=== PATIENT | female | born 1995 | race Two or more races ===

== ENCOUNTER 2017-02-27 12:52 | Emergency (ER) | payer OTHER ==
--- NOTE | 2017-02-27 14:32 | ER Document Report ---
HPI - HPI Patient complains to provider of: Mouth Sores Onset: Other - Greter that n 3 weeks ago. Onset/Duration: Sudden Quality of pain: Achy. denies: No pain Severity: Mild Pain Level: 1 Context: Patient states she is under stress and that 3 wweeks ago she developed a sore under her tongue. She popped it with her finger nail and it went away today it came back and she ahgain popped it.Now sore and is very red. Associated Symptoms: None Exacerbated by: Denies Relieved by: Denies Similar symptoms previously: Yes Recently seen / treated by doctor: No - ROS ROS below otherwise negative: Yes Systems Reviewed and Negative: Yes All other systems reviewed and negative - CONSTITUTIONAL Constitutional: DENIES: Fever, Chills - EENT EENT: DENIES: Sore Throat, Ear Pain, Nasal Drainage-Clear, Nasal Drainage- Purulent, Congestion, Eye problems - CARDIOVASCULAR Cardiovascular: DENIES: Chest pain - DERM Skin Color: Normal Past Medical History - General Information source: Patient - Social History Smoking Status: Never Smoker Chew tobacco use (# tins/day): No Frequency of alcohol use: None Drug Abuse: None Lives with: Family Family History: None Patient has suicidal ideation: No Patient has homicidal ideation: No - Medical History Medical History: Negative - Past Medical History Cardiac Medical History: Reports: None Pulmonary Medical History: Reports: None EENT Medical History: Reports: Other - Oral sores Neurological Medical History: Reports: None Endocrine Medical History: Reports: None Renal/ Medical History: Reports: None. Denies: Hx Peritoneal Dialysis Malignancy Medical History: Reports: None GI Medical History: Reports: None Musculoskeltal Medical History: Reports None Skin Medical History: Reports None Psychiatric Medical History: Reports: None Traumatic Medical History: Reports: None Infectious Medical History: Reports: None Surgical Hx: Negative - Immunizations Immunizations up to date: Yes Hx Diphtheria, Pertussis, Tetanus Vaccination: No Vertical Provider Document - CONSTITUTIONAL Exam Limitations: No Limitations General Appearance: WD/WN, No Apparent Distress - INFECTION CONTROL TRAVEL OUTSIDE OF THE [place] IN LAST 30 DAYS: No - HEENT Notes: Examination patient's oral cavity shows that she has moist mucosa throughout on the underside of the tongue along the frenulum where it connects to the tongue there is a papular erythematous lesion which appears to be epicanthus sore. Area also surrounding is slightly inflamed secondary to the trauma caused by patient popping it with her fingernails and teeth. No other findings at this time. - RESPIRATORY Respiratory: Breath Sounds Normal, No Respiratory Distress O2 Sat by Pulse Oximetry: 97 - CARDIOVASCULAR Cardiovascular: Regular Rate, Regular Rhythm, No Murmur - GI/ABDOMEN Gastrointestinal: Abdomen Soft Course - Vital Signs Vital signs: Temp Pulse Resp BP Pulse Ox 98.3 F 70 16 133/77 H 97 02/27/17 13:00 02/27/17 13:00 02/27/17 13:00 02/27/17 13:00 02/27/17 13:00 Discharge - Discharge Clinical Impression: Canker sores oral Condition: Stable Disposition: HOME, SELF-CARE Additional Instructions: Cause of sores in your mouth caused by most likely viral presentation. This can be brought on by any type of stress acidic foods or even a small sore in the mouth to start with. As we discussed will place you on a probiotic which should help settle this down some. Since you have attempted to rupture it time will place her on an antibiotic for coverage since it looks inflamed and nasty. Use Anbesol gel for any discomfort problem directions. Did not attempt to rupture these vesicles with your fingernails Terrazas again. Should you have any concerns or problems return to ER for a recheck. You have the pharmacy as the pharmacist for a probiotic of choice. I like acidophilus and you follow directions on the bottle. Prescriptions: Clindamycin HCl 150 mg PO QID #28 capsule Forms: Elevated Blood Pressure
[2017-02-27 15:02] VITALS: BP 140/70
== END 2017-02-27 15:02 | disposition home or self-care (01) ==
LOC: ER 12:52
DX: K12.0 Recurrent oral aphthae (principal)
CPT/HCPCS: 99282